=== PATIENT | female | born 2005 | race Caucasian/White ===

== ENCOUNTER 2024-04-09 05:12 | Emergency (ER) | payer BC ==
[~2024-04-09] VITALS: Ht 157.5 cm; Wt 52.3 kg
[2024-04-09 05:18] VITALS: TEMP 98.4
[2024-04-09] MEDS ORDERED: NS 1,000 ML IV ONE (05:30)
[2024-04-09] MEDS ORDERED: Morphine 4 MG/ML VIAL IV ONE ×2 (05:30→07:15)
[2024-04-09] MEDS ORDERED: Ketorolac 15 MG/ML VIAL IV ONE (05:30)
[2024-04-09] MEDS ORDERED: Ondansetron 4 MG/2 ML VIAL IV ONE ×2 (05:30→08:00)
[2024-04-09 05:40] LABS: BASO % 0.4 % (0.0-2.0); EOS # 0.1 K/mm3 (0.0-0.7); EOS % 0.8 % (0.0-4.0); GRAN # 7.1 K/mm3 (1.4-6.5); GRAN % 66.5 % (42.2-75.2); LYMPH # 2.5 K/mm3 (1.2-3.4); LYMPH % 23.8 % (20.0-51.0); MEAN CELL VOLUME 97 fl (80.0-95.0); MEAN CORPUSCULAR HEMOGLOBIN 34 pg (26-32); MEAN CORPUSCULAR HGB CONC 35 g/dl (33.0-37.0); MEAN PLATELET VOLUME 10.2 fl (7.4-10.4); MONO # 0.9 K/mm3 (0.1-0.6); MONO % 8.2 % (1.7-9.3); PLATELET COUNT 264 K/mm3 (130-400); RED BLOOD COUNT 4.14 M/mm3 (4.10-5.30); REDCELL DISTRIBUTION WIDTH-CV 11.4 % (11.5-14.5)
[2024-04-09 06:00] LABS: ALBUMIN 3.9 g/dL (3.5-5.0); BILIRUBIN,TOTAL 0.5 mg/dL (0.2-1.2); CREATININE, serum 0.72 mg/dL (0.57-1.11); POTASSIUM 4.2 mEq/L (3.5-4.5); TOTAL PROTEIN 6.6 g/dl (6.2-8.1)
[2024-04-09 06:23] LABS: COLLECTION METHOD CLEAN CATCH
[2024-04-09 06:31] LABS: PH 5.5 (5.0-8.5); URINE APPEARANCE CLEAR (CLEAR/HAZY); URINE BLOOD NEGATIVE (NEGATIVE); URINE COLOR YELLOW (YELLOW); URINE GLUCOSE NEGATIVE (NEGATIVE); URINE KETONE NEGATIVE (NEGATIVE); URINE NITRATE NEGATIVE (NEGATIVE); URINE PROTEIN(semi-quant) NEGATIVE (NEGATIVE); URINE UROBILINOGEN 0.2 E.U/dL (0.2-1.0)
[2024-04-09] MEDS ORDERED: fentaNYL 50 MCG/ML 2 ML VIAL IV ONE (08:00)
[2024-04-09] MEDS ORDERED: NORCO 325 MG-51 TAB PO (10:32)
[2024-04-09 10:47] VITALS: BP 110/70; PULSE 64
== END 2024-04-09 10:48 | disposition home or self-care (01) ==
LOC: COL.ER 05:12
PROVIDERS: Emergency Medicine
DX: N83.201 Unspecified ovarian cyst, right side (principal)
CPT/HCPCS: J2270; J2405; J3010; J7030